=== PATIENT | male | born 1995 | race Two or more races ===

== ENCOUNTER 2021-07-19 07:18 | Emergency (ER) | payer MEDICAID, OTHER ==
[~2021-07-19] VITALS: Ht 165.1 cm; Wt 72.6 kg
[2021-07-19 08:03] VITALS: BP 112/70
[2021-07-19] MEDS ORDERED: IBUP800T27 PO (08:24)
[2021-07-19] MEDS ORDERED: AMOX-277 PO (08:24)
[2021-07-19] MEDS ORDERED: IBUPROFEN 800 MG TAB PO ONE (08:30)
== END 2021-07-19 08:33 | disposition home or self-care (01) ==
LOC: ER 07:18
DX: S02.2XXA Fracture of nasal bones, initial encounter for closed fracture (principal); F17.210 Nicotine dependence, cigarettes, uncomplicated; Z79.1 Long term (current) use of non-steroidal anti-inflammatories (NSAID); Z79.2 Long term (current) use of antibiotics; Y04.2XXA Assault by strike against or bumped into by another person, initial encounter; Y93.89 Activity, other specified; Y92.89 Other specified places as the place of occurrence of the external cause; Y99.8 Other external cause status
CPT/HCPCS: 70160

== ENCOUNTER 2024-01-21 09:13 | Emergency (ER) | payer MEDICAID ==
[~2024-01-21] VITALS: Ht 177.8 cm; Wt 95.4 kg
[~2024-01-21 09:13] MED LIST: AMOX875T4 PO; IBUP-1456 PO
[2024-01-21] MEDS: LORazepam 2MG/ML-1ML VIAL IV ONE (09:35)
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
[2024-01-21 10:24] LABS: Basophils # (auto) 0 10 ^3/uL (0-0.2); Basophils % (auto) 0.2 % (0.0-2.0); Eosinophils # (auto) 0 10 ^3/uL (0-0.8); Eosinophils % (auto) 0.1 % (0.0-7.0); Hematocrit 44.5 % (41.0-53.0); Hemoglobin 15.4 g/dL (13.5-17.5); Lymphocytes # (auto) 0.8 10 ^3/uL (0.4-5.4); Lymphocytes % (auto) 6.6 % (10.0-50.0); Mean Corpuscular Hemoglobin 30.3 pg (28.0-32.0); Mean Corpuscular Hgb Conc. 34.7 g/dL (32.0-36.0); Mean Corpuscular Volume 87.3 fL (80.0-100.0); Monocytes # (auto) 0.6 10 ^3/uL (0-1.3); Monocytes % (auto) 5.1 % (0.0-12.0); Neutrophils # (auto) 10.8 10 ^3/uL (1.6-8.6); Nucleated Red Blood Cells % 0.1 %; Platelet Count (auto) 219 10^3/uL (140-450); Red Cell Distribution Width 13.5 % (11.8-14.3); White Blood Cell 12.3 10^3/uL (4.4-10.8)
[2024-01-21 10:30] LABS: Chloride 109 mmol/L (98-107); Sodium 143 mmol/L (136-145)
[2024-01-21 10:31] LABS: Anion Gap 11 (5-15); Carbon Dioxide 23 mmol/L (20-31)
[2024-01-21 10:32] LABS: Calcium 9.7 mg/dL (8.7-10.4)
[2024-01-21 10:37] LABS: BUN/Creatinine Ratio 7.7 (10.0-20.0); Blood Urea Nitrogen 8 mg/dL (9-23); Glucose 111 mg/dL (74-106)
[2024-01-21 12:40] VITALS: BP 126/78; PULSE 130; RESP 16; TEMP 98.3; O2SAT 95
== END 2024-01-21 16:04 | disposition left against medical advice (07) ==
LOC: EDBD 09:13 → ER 09:13
DX: S80.12XA Contusion of left lower leg, initial encounter (principal); S80.11XA Contusion of right lower leg, initial encounter; G93.41 Metabolic encephalopathy; G40.909 Epilepsy, unspecified, not intractable, without status epilepticus; F17.210 Nicotine dependence, cigarettes, uncomplicated; F15.90 Other stimulant use, unspecified, uncomplicated; V49.9XXA Car occupant (driver) (passenger) injured in unspecified traffic accident, initial encounter; Y93.89 Activity, other specified; Y92.89 Other specified places as the place of occurrence of the external cause; Y99.8 Other external cause status
CPT/HCPCS: 36415; 80048; 85025; 96374; 99283; J2060